=== PATIENT | female | born 2000 | race Caucasian/White ===

== ENCOUNTER 2020-07-08 13:06 | Emergency (ER) | payer BC ==
[2020-07-08] MEDS ORDERED: KETOROLAC TROMETHAMINE INJ/PF 30 MG/1 ML SDV IV ONE (14:09)
--- NOTE | 2020-07-08 14:13 | ER Document Report ---
ED Medical Screen (RME) - General Chief Complaint: Jaw Pain Stated Complaint: EAR PAIN,FACIAL SWELLING - HPI Notes: 07/08/20 14:11 Rapid Medical Exam HPI: This 20-year-old female presents to the ER plan of right facial swelling and redness for the past couple days. Patient did test positive for Covid 2 days ago. She denies any specific dental pain, ear pain, ear drainage. Increased pain with jaw movement. She reports general viral symptoms other than objective fevers. No treatments tried. Physical Exam: GENERAL: Well-appearing, well-nourished and in no acute distress. HEAD: Atraumatic, normocephalic. ENT: Moist mucous membranes. Preauricular edema and erythema that extends to the postauricular area and down to the submandibular area. No submental or sublingual edema tolerating oral secretions. No trismus. RESP: Respirations even and unlabored CV- Regular rate. NEURO: No focal neurological deficits. Moves all extremities spontaneously and on command. My involvement in this patients care was limited to a rapid initial assessment. A comprehensive ED assessment and evaluation of the patient, analysis of test results, treatment, and completion of the medical decision making process will be performed by other ER providers. - Related Data Allergies/Adverse Reactions: No Known Allergies Allergy (Unverified 07/08/20 13:27) Physical Exam - Vital signs Vitals: Temp Pulse Resp BP Pulse Ox 98.0 F 118 H 20 133/95 H 99 07/08/20 13:13 07/08/20 13:13 07/08/20 13:13 07/08/20 13:13 07/08/20 13:13 Course - Vital Signs Vital signs: Temp Pulse Resp BP Pulse Ox 98.0 F 118 H 20 133/95 H 99 07/08/20 13:28 07/08/20 13:13 07/08/20 13:13 07/08/20 13:13 07/08/20 13:13
[2020-07-08 15:27] LABS: ABSOLUTE BASOPHILS # (AUTO) 0.1 10^3/uL (0.0-0.2); ABSOLUTE LYMPHOCYTES (AUTO) 1.4 10^3/uL (0.5-4.7); ABSOLUTE MONOCYTES (AUTO) 1.5 10^3/uL (0.1-1.4); ABSOLUTE NEUT (AUTO) 15.2 10^3/uL (1.7-8.2); BASOPHILS % (AUTO) 0.5 % (0-2); EOSINOPHILS % (AUTO) 0.1 % (0-6); HEMATOCRIT 40.2 % (36.0-47.0); HEMOGLOBIN 13.2 g/dL (12.0-15.5); LYMPHOCYTES % (AUTO) 7.5 % (13-45); MEAN CORPUSCULAR HEMOGLOBIN 24.2 pg (27.0-33.4); MEAN CORPUSCULAR HGB CONC 32.9 g/dL (32.0-36.0); MEAN CORPUSCULAR VOLUME 74 fl (80-97); MONOCYTES % (AUTO) 8.4 % (3-13); PLATELET COUNT 316 10^3/uL (150-450); RED BLOOD COUNT 5.47 10^6/uL (3.72-5.28); RED CELL DISTRIBUTION WIDTH 15.1 % (11.5-14.0); SEGMENTED NEUTROPHILS % (AUTO) 83.5 % (42-78); TOTAL CELLS COUNTED % (AUTO) 100 %; WHITE BLOOD COUNT 18.2 10^3/uL (4.0-10.5)
[2020-07-08 16:23] LABS: ANION GAP 10 (5-19); BLOOD UREA NITROGEN 10 mg/dL (7-20); CALCIUM 9.2 mg/dL (8.4-10.2); CARBON DIOXIDE 23 mmol/L (22-30); CHLORIDE 103 mmol/L (98-107); GLUCOSE 86 mg/dL (75-110)
[2020-07-08] MEDS ORDERED: MORPHINE SULFATE 10 MG/ML INJ IV PRN (17:01)
--- NOTE | 2020-07-08 17:06 | ER Document Report ---
ED General - General Chief Complaint: Jaw Pain Stated Complaint: EAR PAIN,FACIAL SWELLING Time Seen by Provider: 07/08/20 17:05 - HPI Notes: 20-year-old female presents with right facial swelling. Patient states that on Monday, 2 days ago, she states that she developed a hard lump to the right side of her cheek by her ear. She noted that yesterday the swelling had greatly increased and it was causing some pain. Symptoms again worsening today. Patient states that she still is able to swallow, though notes she does have a decreased appetite. She notes a metallic taste in her mouth, does not feel any drainage. No loss of hearing in the right ear, no sensation of bubbling/popping in her right ear. Patient also states that she was tested for Covid yesterday and is positive. She states she is also having "all of the symptoms" when she is related to Covid. - Related Data Allergies/Adverse Reactions: No Known Allergies Allergy (Unverified 07/08/20 13:27) Past Medical History - General Information source: Patient - Social History Smoking Status: Unknown if Ever Smoked Family History: Reviewed & Not Pertinent Patient has homicidal ideation: No Pulmonary Medical History: Reports: Hx Asthma, Hx Bronchitis Past Surgical History: Reports: Hx Orthopedic Surgery - 2 rt surgeries, Hx Tonsillectomy Review of Systems - Review of Systems Constitutional: Chills, Fever EENT: denies: Difficulty swallowing Cardiovascular: denies: Chest pain Respiratory: Cough Gastrointestinal: denies: Abdominal pain Genitourinary: No symptoms reported Female Genitourinary: No symptoms reported Musculoskeletal: Muscle pain Skin: No symptoms reported Hematologic/Lymphatic: No symptoms reported Neurological/Psychological: No symptoms reported Physical Exam - Vital signs Vitals: Temp Pulse Resp BP Pulse Ox 98.0 F 118 H 20 133/95 H 99 07/08/20 13:13 07/08/20 13:13 07/08/20 13:13 07/08/20 13:13 07/08/20 13:13 - General General appearance: Appears well, Alert In distress: None - HEENT Head: Normocephalic, Atraumatic Extraocular movements intact: Yes Pupils: PERRL External canal: No: Erythema - Right, Swollen - Right Tympanic membrane: Serous effusion - Right. No: Injected - Right Mucous membranes: Moist Pharynx: No: Erythema, Exudate, Tonsillar hypertrophy, Uvular edema Neck: Lymphadenopathy Notes: There is swelling overlying the right parotid gland No elevation of floor of mouth No obvious dental caries or areas of infection Able to swallow, managing secretions - Respiratory Breath sounds: Normal - Cardiovascular Rhythm: Regular Heart sounds: Normal auscultation - Abdominal Inspection: Obese Tenderness: Nontender - Extremities General upper extremity: Normal ROM General lower extremity: Normal ROM - Neurological Neuro grossly intact: Yes Cognition: Normal Orientation: AAOx4 - Psychological Associated symptoms: Normal affect - Skin Skin Temperature: Warm Course - Re-evaluation Re-evalutation: 20-year-old female presents with right facial swelling, progressively worsening over the past 3 days. On exam she does have appreciable swelling over her right parotid gland, clinically she has parotitis. There is no elevation of floor of the mouth, she is managing her secretions, there is no swelling/erythema to the posterior pharynx. Clinically I do not have suspicion for Bradley angina or other deep space infection at this time. A CT neck had been ordered from triage, the results are still pending, I did review images. She also had labs done through triage, she does have a leukocytosis as expected and electrolytes are within normal limits. Additionally she is noted to be Covid positive. Her lungs are clear and she has no hypoxia. 07/08/20 17:26 CT neck has resulted. Per radiology there are inflammatory changes, enlarged parotid gland and lymphadenopathy. This correlates clinically with her diagnosis of parotitis. There is no abscess appreciated. Patient was updated on results. I discussed with her that proctitis is often caused by viral infections, she is currently Covid positive, however given that she reports that the facial swelling started before her Covid symptoms, will treat as bacterial, dose of Augmentin ordered and plan to discharge her with same. She was updated on this plan. Also discussed supportive care for Covid. Return precautions given, stable at time of discharge. - Vital Signs Vital signs: Temp Pulse Resp BP Pulse Ox 98.0 F 118 H 20 133/95 H 99 07/08/20 13:28 07/08/20 13:13 07/08/20 13:13 07/08/20 13:13 07/08/20 13:13 - Laboratory Results Result Diagrams: 07/08/20 15:07 07/08/20 15:50 Laboratory Results Interpreted: 07/08/20 07/08/20 15:07 15:50 WBC 18.2 H RBC 5.47 H MCV 74 L MCH 24.2 L RDW 15.1 H Lymph % (Auto) 7.5 L Absolute Neuts (auto) 15.2 H Absolute Monos (auto) 1.5 H Seg Neutrophils % 83.5 H Sodium 136.2 L Critical Laboratory Results Reviewed: No Critical Results - Radiology Results Critical Radiology Results Reviewed: No Critical Results Discharge - Discharge Clinical Impression: Acute parotitis, COVID-19 virus infection Disposition: HOME, SELF-CARE Instructions: COVID-19 Guidance for Persons Under Investigation, Acute Parotid Gland Swelling ([facility]) Additional Instructions: Please begin course of Augmentin for the facial swelling. Be sure to drink plenty of fluids. You may use ibuprofen to help with the inflammation as well. In terms of your Covid infection, treatment is mostly symptomatic. You may use Tylenol/ibuprofen for fever and body aches, Mucinex/Robitussin/Sudafed for respiratory symptoms. Is also advised to take a daily multivitamin, or products that contain vitamin C/vitamin D and zinc. Return to the emergency department for any concerning or worsening symptoms. Prescriptions: Amoxicillin/Potassium Clav [Augmentin 875-125 Tablet] 1 tab PO Q12 7 Days #14 tablet Ibuprofen [Ibu] 800 mg PO Q8H PRN #30 tablet PRN Reason:
--- NOTE | 2020-07-08 17:11 | RADIOLOGY REPORT (SQ) ---
EXAM DESCRIPTION: CT SOFT TISSUE NECK WITH IMAGES COMPLETED DATE/TIME: 07/08/2020 4:50 pm REASON FOR STUDY: right pre auricular swelling/erythema. covid + COMPARISON: None. TECHNIQUE: Post IV contrasted scanning from skull base through lung apices with review of bone, soft tissue and lung windows. Reconstructed coronal and sagittal MPR images reviewed. All images stored on PACS. All CT scanners at this facility use dose modulation, iterative reconstruction, and/or weight based d osing when appropriate to reduce radiation dose to as low as reasonably achievable (ALARA). [facility]: Dose Right [facility]: CareDose [facility]: Dose Right [facility]: Teradose 4D [facility]: SSEV CONTRAST TYPE AND DOSE: contrast/concentration: Isovue 350.00 mmol/ml; Total Contrast Delivered: 61. 8 ml; Total Saline Delivered: 20.0 ml RENAL FUNCTION: None required. The patient is less than 50 years old. RADIATION DOSE: CT Rad equipment meets quality standard of care and radiation dose reduction techniq ues were employed. CTDIvol: 21.2 mGy. DLP: 609 mGy-cm. . LIMITATIONS: None. FINDINGS: SKULL BASE: Intact. MAJOR SALIVARY GLANDS: No masses. The right submandibular gland is larger than the left. There are adjacent inflammatory changes put the inflammation does not appear to involve the submandibular gland . The right parotid gland appears slightly larger than the left. LYMPHADENOPATHY: There is cervical adenopathy more prominent on the right. There is submandibular ad enopathy. MUCOSAL MASSES OR ASYMMETRY: No mucosal masses or asymmetry. LARYNX/CORDS: No abnormal findings. VASCULAR STRUCTURES: The major vessels are patent. LUNG APICES: Clear. BONES: Intact. THYROID: Normal size. No masses. PARANASAL SINUSES: Clear. OTHER: There are inflammatory changes on the right side of face extending inferiorly from the pre-aur icular region to the submandibular region. No abscess is appreciated. IMPRESSION: There are inflammatory changes in the right side of the face. Cannot exclude parotitis. The right parotid gland is slightly more prominent than the left. The right submandibular gland is larger than the left. There is cervical adenopathy more prominent on the right. There is submandib ular adenopathy. TECHNICAL DOCUMENTATION: JOB ID: [id number] Quality ID # [id number]: Final reports with documentation of one or more dose reduction techniques (e.g., Au tomated exposure control, adjustment of the mA and/or kV according to patient size, use of iterative reconstruction technique) 2010 [facility] [employer]- All Rights Reserved Reading location - IP/workstation name: [email or web address]
[2020-07-08] MEDS ORDERED: AMOXICILLIN TR/POT CLAVULANATE 875-125 MG TAB PO ONE (17:24)
[2020-07-08] MEDS ORDERED: GUAIFENESIN 600 MG TABLET.SA PO ONE (17:24)
[2020-07-08 17:48] VITALS: BP 135/75
== END 2020-07-08 17:49 | disposition home or self-care (01) ==
LOC: ER 13:06
DX: K11.21 Acute sialoadenitis (principal); U07.1 COVID-19; J45.909 Unspecified asthma, uncomplicated
CPT/HCPCS: 99285; 96374; 96375; 36415; 85025; 80048; 70491; J1885; J2270; J3490